=== PATIENT | female | born 1960 | race Caucasian/White ===

== ENCOUNTER → 2017-03-11 | Outpatient (REF) | payer BC | LOC: M SFHCWAGY 13:08 | PROVIDERS: ATTEND Nurse Practitioner Women's Health | DX: N94.9 Unspecified condition associated with female genital organs and menstrual cycle (principal); L29.8 Other pruritus; R10.2 Pelvic and perineal pain ==

== ENCOUNTER → 2017-03-14 | Outpatient (CLI) | payer BC ==
--- NOTE | 2017-03-14 17:02 | REP ---
PELVIC ULTRASOUND: Real-time sonographic evaluation of the pelvis was performed utilizing transabdominal and endovaginal technique. The bladder measures 15.8 x 10.7 x 7.7 cm. The uterus measures 7.0 x 3.0 x 4.3 cm. Endometrial thickness is 4 mm with no endometrial fluid collection. Patient has had a right salpingo-oophorectomy. Left ovary appears normal in size and echotexture measuring 2.1 x 1.3 x 2.1 cm. There is no adnexal mass or free fluid. There is a fibroid seen measuring 1.9 x 1.1 x 1.5 cm on the right. Study is somewhat limited due to patient body habitus. IMPRESSION: Right sided fibroid 1.9 cm in maximum diameter in the inferior body of the uterus. No mass or free fluid.
== END ==
LOC: M WHC 15:02
PROVIDERS: ATTEND Nurse Practitioner Women's Health
DX: R10.2 Pelvic and perineal pain (principal); Z78.0 Asymptomatic menopausal state

== ENCOUNTER → 2018-03-12 | Outpatient (CLI) | payer BC | LOC: M WHC 15:24 | DX: Z12.31 Encounter for screening mammogram for malignant neoplasm of breast (principal); Z78.0 Asymptomatic menopausal state | CPT/HCPCS: 77067 ==

== ENCOUNTER → 2019-05-07 | Outpatient (CLI) | payer BC ==
--- NOTE | 2019-05-07 11:03 | REPMRS ---
Patient History The patient states she had a clinical breast exam in April 2019.No known family history of cancer. 3D TOMOSYNTHESIS WAS PERFORMED. [facility] 9.[facility]%. Digital Woman Screen Mammo: May 07, 2019 - Exam #: [id number] Bilateral CC and MLO view(s) were taken. Technologist: Adriane Chambers, Technologist Prior study comparison: March 12, 2018, bilateral digital woman screen mammo performed at [facility]. June 17, 2014, digital woman screen mammo performed at [facility]. FINDINGS: There are scattered fibroglandular densities. There has been no change in the appearance of the mammogram from the prior studies. There is a mild amount of residual fibroglandular tissue which is fairly symmetric. There is no interval development of dominant mass, architectural distortion, or clustered microcalcification suggestive of malignancy. Assessment: BI-RADS/ACR category 1 mammogram. Negative Mammogram. Recommendation Routine screening mammogram in 1 year (for women over age 40). This mammogram was interpreted with the aid of an FDA-approved computer-aided dectection system. Electronically Signed By: Wang Ponce MD 05/07/19 [id number]
== END ==
LOC: M WHC 09:00
PROVIDERS: ATTEND Nurse Practitioner Women's Health
DX: Z12.31 Encounter for screening mammogram for malignant neoplasm of breast (principal)

== ENCOUNTER → 2019-07-07 | Outpatient (CLI) | payer BC ==
--- NOTE | 2019-07-07 12:39 | REP ---
Clinical: Postmenopausal bleeding. Technique: Transabdominal pelvic ultrasound followed by transvaginal examination for better evaluation of the endometrium and adnexa. Findings: Heterogeneous uterus measures 5.1 x 2.9 x 4.1 cm. Endometrial complex measures 5 mm excluding a small amount of endocervical fluid. A subtle posterior intramural fibroid measuring 1.8 x 1.1 x 1.4 cm cannot be excluded. Right ovary is surgically absent. Left ovary not visualized. No pelvic fluid or adnexal mass lesion. Impression: Endometrial complex measures 5 mm excluding small amount of fluid. Possible 1.8 cm posterior intramural fibroid.
== END ==
LOC: M WHC 10:19
PROVIDERS: ATTEND Nurse Practitioner Women's Health
DX: R93.89 Abnormal findings on diagnostic imaging of other specified body structures (principal); N95.0 Postmenopausal bleeding

== ENCOUNTER → 2020-01-18 | Outpatient (CLI) | payer BC ==
--- NOTE | 2020-02-22 09:47 | REP ---
PELVIC ULTRASOUND: HISTORY: Post menopausal bleeding. TECHNIQUE: Transabdominal pelvic ultrasound followed by transvaginal examination for better evaluation of the endometrium and adnexa. FINDINGS: The bladder is normal and measures 10.0 x 8.8 x 6.1 cm (285 cc). Heterogeneous anteverted uterus measures 7.3 x 3.4 x 4.9 cm and includes a small amount of endocervical fluid as well as complex partially calcified degenerating intramural fibroid measuring 1.8 x 1.5 x 1.2 cm. The right ovary is not visualized. The left ovary is grossly normal and measures 1.8 x 2.3 x 2.2 cm. No pelvic fluid or adnexal mass lesion. IMPRESSION: Degenerating posterior intramural/submucosal fibroid again noted measuring 1.8 cm maximal diameter. MTDD
== END ==
LOC: M WHC 07:55
PROVIDERS: ATTEND Nurse Practitioner Women's Health
DX: N95.0 Postmenopausal bleeding (principal)

== ENCOUNTER → 2020-06-30 | Outpatient (CLI) | payer BC ==
--- NOTE | 2020-06-30 12:06 | REPMRS ---
Patient History The patient states she had a clinical breast exam in June 2020. No known family history of cancer. Digital Woman Screen Mammo: June 30, 2020 - Exam #: [id number] Bilateral CC and MLO view(s) were taken. Technologist: Juanita Olivares, Technologist Prior study comparison: May 07, 2019, bilateral digital woman screen mammo performed at [facility]. March 12, 2018, bilateral digital woman screen mammo performed at [facility]. June 17, 2014, digital woman screen mammo performed at [facility]. FINDINGS: There are scattered fibroglandular densities. The Volpara volumetric breast density category is:B. There has been no change in the appearance of the mammogram from the prior studies. There is a mild amount of scattered fibroglandular density which is fairly symmetric. There is no interval development of dominant mass, architectural distortion, or grouped microcalcification suggestive of malignancy. 3-D tomosynthesis shows no additional findings. Assessment: BI-RADS/ACR category 1 mammogram. Negative Mammogram. Recommendation Routine screening mammogram of both breasts in 1 year (for women over age 40). This patient's [facility] Lifetime Breast Cancer Risk is estimated at 8.9 %. This mammogram was interpreted with the aid of an FDA-approved computer-aided dectection system. Electronically Signed By: Haja Schumacher MD 06/30/20 [id number]
== END ==
LOC: M WHC 08:57
PROVIDERS: ATTEND Nurse Practitioner Women's Health
DX: Z12.31 Encounter for screening mammogram for malignant neoplasm of breast (principal)

== ENCOUNTER → 2020-06-30 | Outpatient (REF) | payer BC | LOC: M SFHCWAGY 13:32 | PROVIDERS: ATTEND Nurse Practitioner Women's Health | DX: Z12.4 Encounter for screening for malignant neoplasm of cervix (principal) ==

== ENCOUNTER → 2021-07-30 | Outpatient (CLI) | payer BC | LOC: M WHC 14:36 | PROVIDERS: ATTEND Obstetrics & Gynecology | DX: Z12.31 Encounter for screening mammogram for malignant neoplasm of breast (principal) ==

== ENCOUNTER → 2022-09-09 | Outpatient (CLI) | payer BC | LOC: M WHC 10:23 | PROVIDERS: ATTEND Obstetrics & Gynecology | DX: Z12.31 Encounter for screening mammogram for malignant neoplasm of breast (principal) ==

== ENCOUNTER → 2023-11-04 | Outpatient (CLI) | payer BC | LOC: M WHC 14:51 | PROVIDERS: ATTEND Obstetrics & Gynecology | DX: Z12.31 Encounter for screening mammogram for malignant neoplasm of breast (principal); R92.313 Mammographic fatty tissue density, bilateral breasts ==

== ENCOUNTER → 2023-11-05 | Outpatient (CLI) | payer BC | LOC: M WHC 06:54 | PROVIDERS: ATTEND Obstetrics & Gynecology | DX: Z12.31 Encounter for screening mammogram for malignant neoplasm of breast (principal) ==

== ENCOUNTER → 2025-01-19 | Outpatient (CLI) | payer BC | LOC: M WHC 13:09 | PROVIDERS: ATTEND Advanced Practice Midwife | DX: Z12.31 Encounter for screening mammogram for malignant neoplasm of breast (principal); R92.313 Mammographic fatty tissue density, bilateral breasts ==